=== PATIENT | male | born 1960 | race Caucasian/White ===

== ENCOUNTER → 2016-08-30 | Day surgery (SDC) | payer OTHER ==
[~2016-08-30] MED LIST: ACETAMINOPHEN 1000 MG/100 ML VIAL IV ONE; BUPIVACAINE/EPINEPHRINE 0.5% PF 30 ML VIAL ONE; KETOROLAC TROMETHAMINE 30 MG/ML (IVP) VIAL ONE; LACTATED RINGER'S 1000 ML INJ 1,000 ML ONE; LIDOCAINE 1%/EPINEPHrine 1:100,000 SOLN 20 ML VIAL ONE; MIDAZOLAM HCL 2 MG/2 ML VIAL ONE; ONDANSETRON HCL 4 MG/2 ML VIAL IV PUSH ONE; PROPOFOL 200 MG/20 ML AMP IV ONE; ceFAZolin 2 GM PREMIX 50 ML ONE
--- NOTE | 2016-09-02 08:52 | MP ---
cc: CATERINA WHITTEN DATE OF SURGERY: 08/30/2016 PREOPERATIVE DIAGNOSIS Lipoma upper back. POSTOPERATIVE DIAGNOSIS Lipoma upper back. PROCEDURE Excision of lipoma upper back. SURGEON Dr. Whitten. [employer]BER Rudy Welch, MS III ANESTHESIA General. OPERATIVE FINDINGS AND PROCEDURE: The patient was brought to the operating room, placed in the right lateral decubitus position after satisfactory anesthesia been obtained. The upper back was prepped and draped in the usual sterile fashion. 0.5% Marcaine with epinephrine was used to infiltrate the skin and surrounding tissue for local anesthesia. Transverse skin incision was made and carried down sharply through the subcutaneous tissue with the cautery being used for hemostasis. The incision was deepened to where the lipoma was identified and it was then dissected free as completely as possible using the cautery. There was one bleeder in the muscle which was suture ligated with a 3-0 Vicryl suture. The remainder of the area with oozing was controlled with the cautery. Hemostasis was strictly assured with the cautery as well as Driss. The subcutaneous tissue was closed with interrupted 3-0 Vicryl suture and the skin closed with interrupted 4-0 PDS subcuticular stitches. Steri-Strips and a sterile compression dressing were placed and the patient was then awakened and taken from the operating room in satisfactory condition having tolerated the procedure without problem. ESTIMATED BLOOD LOSS Less than 10 mL. COUNTS The instrument count, sponge count, needle counts were reported as being correct x2 at the end of the procedure. MD COURTNEY Gonzales/LISA /9:14 AM /8:45 AM
== END | disposition home or self-care (01) ==
LOC: ESDC 06:38
PROVIDERS: ATTEND Surgery
DX: D17.1 Benign lipomatous neoplasm of skin and subcutaneous tissue of trunk (principal)
CPT/HCPCS: 00300; 21931; 88304; J0131; J0690; J1885; J2250; J2405; J3010; J7120